=== PATIENT | female | born 1980 | race Caucasian/White ===

== ENCOUNTER 2024-12-11 15:42 | Emergency (ER) | payer SELFPAY ==
[2024-12-11 15:49] VITALS: BP 119/79
--- NOTE | 2024-12-11 17:16 | ED.GENMED ---
History of Present Illness
General
Chief Complaint: DVT/Possible Blood Clot
Source: patient
Time Seen by Provider: 12/11/24 16:33
History of Present Illness
History of Present Illness:
44-year-old female presenting to the emergency department for evaluation after she started experiencing increased pain in the right proximal gastrocnemius 2 days ago, tore her Achilles tendon on November 24, saw orthopedics a few days ago and
received an orthopedic boot. Patient has no other symptoms including chest pain, cough, pleurisy. No history of DVT. Social history is negative for tobacco use.
Past History
Past History
ED Past Medical History: None
ED Past Surgical History: None
Social History
Tobacco: Non-smoker
Alcohol: Occasional
Drug: None
Personal:
Living: with family
Employment: Employed
Review of Systems
Review of Systems
All Other Systems: ROS reviewed and negative except as documented in HPI and ROS
Phy Exam
Physical Exam
Physical Exam:
GENERAL: Alert , in no apparent distress
EYE: conjunctiva clear
Head: Normocephalic atraumatic
NECK: Supple,
ENT: mmm.
LUNGS: no acute respiratory distress
NEUROLOGICAL: Alert and oriented
SKIN: Warm and dry, skin intact.
MUSCULOSKELETAL: well perfused. Orthopedic boot in place, no obvious edema compared to the left lower extremity
PSYCH: Normal and appropriate interaction.
Scores
Heart Failure Risk
Heart Failure Risk Score: Not Applicable
Heart Score for Chest Pain Patients
STEMI patient?: Not applicable
Withdrawal Assessment of Alcohol
Withdrawal Assessment Completed?: Not applicable
Course
Orders/Labs/Results
Orders:
Orders
12/11/24 15:54
US Legs, Right [US Periph Venous LOWER Ext RT] Urgent
Comment:
Reason For Exam: calf pain
12/11/24 18:32
Apixaban [Eliquis] 10 mg PO NOW STA
Vital Signs
Initial and Last Documented VS:
Initial Vital Signs
Temp Pulse Resp BP Pulse Ox
98.3 F 71 18 119/79 98
12/11/24 15:49 12/11/24 15:49 12/11/24 15:49 12/11/24 15:49 12/11/24 15:49
Last Documented Vital Signs
Temp Pulse Resp BP Pulse Ox
98.3 F 71 18 119/79 98
12/11/24 15:49 12/11/24 15:49 12/11/24 15:49 12/11/24 15:49 12/11/24 16:33
MDM/Problems Addressed
Differential Diagnosis Includes:
Sequela from known Achilles tendon rupture, DVT, I do not have concern for arterial occlusion
MDM/Problems Addressed:
44-year-old female presenting to the ER for evaluation and rule out of DVT after experiencing some increased pain to the right lower extremity following recent Achilles tendon rupture. No symptoms to suggest peripheral arterial disease. Ultrasound
ordered. Disposition pending.
*Radiology
Radiology exam reviewed: radiology read reviewed
*Pulse Oximetry
Patient hypoxic: no
*Critical Care Note
Total Time (30-74mins, 75-104mins- exclusive of procedures): Not Applicable
Patient Management
Escalation/DeEscalation of care consider admission/obs:
Patient's ultrasound does show an acute DVT to the soleal vein. She is without chest pain or shortness of breath. She will be started on Eliquis. Given first dose here as well as a coupon for free 30 days. Advised follow-up with orthopedist as
well as primary care provider. Advised on medication side effects including increased risk for bleeding. Avoid NSAIDs while taking. Aware of return precautions to the ER.
ED Attending Note
-
Portions of this chart may have been created with voice recognition software.� Occasional wrong word or��sound alike� substitutions may have occurred due to the inherent limitations of voice recognition software.
Discharge Plan
Departure
Patient Disposition: Home (Routine Discharge)
Date of Disposition: 12/11/24
Time of Disposition: 18:33
Patient with high blood pressure during this ER visit?: No
Discharge Problem:
Acute deep vein thrombosis (DVT) of distal vein of right lower extremity
Instructions: Deep Vein Thrombosis (Blood Clots in the Legs) (DC)
Prescriptions:
New
Eliquis 5 mg tablet
5 mg PO BID Qty: 68 0RF
Rx Instructions:
Take 2 tabs PO BID x 6.5 days, Take 1 tab PO BID x 21 days following
Referrals:
Julian Guillen MD [Family Provider] -
Interventions
Interventions:
*Risk Screen - Suicide Last Done: 12/11/24 16:33
*General Assessment Last Done: 12/11/24 16:33
*Neglect/Abuse Screening Last Done: 12/11/24 16:33
*ED COVID-19 Vaccine History Last Done: 12/11/24 16:33
ED- Cardiac Assessment Last Done: 12/11/24 16:33
ED- Pulmonary Assessment Last Done: 12/11/24 16:33
ED-Peripheral Vascular Assessment Last Done: 12/11/24 16:33
ED-Skin Assessment Last Done: 12/11/24 16:33
Discharge Date and Time
Print Language: URDU
[2024-12-11] MEDS: ELIQUIS 10 MG PO (18:39)
[2024-12-11 18:46] VITALS: BP 120/83
== END 2024-12-11 18:47 | disposition home or self-care (01) ==
LOC: EMR 15:42
PROVIDERS: EMERGENCY PHYSICIAN Emergency Medicine; FAMILY PHYSICIAN Family Medicine
DX: I82.461 Acute embolism and thrombosis of right calf muscular vein (principal)
CPT/HCPCS: 99284; 93971